=== PATIENT | male | born 1960 | race American Indian/Alaskan Native ===

== ENCOUNTER 2017-01-02 06:57 | Day surgery (SDC) | payer MEDICARE ==
[2017-01-02] MEDS ORDERED: TETRACAINE 0.5% OS PRN (07:00)
[2017-01-02] MEDS ORDERED: NACL BACTERIOSTATIC INFILTRATI ONE (09:32)
[2017-01-02] MEDS: VIGAMOX OS SCH ×3 (09:40→10:04)
[2017-01-02] MEDS: MYDRIACYL OS SCH ×3 (09:40→10:04)
[2017-01-02] MEDS: AK-Dilate OS SCH ×3 (09:40→10:04)
[2017-01-02] MEDS ORDERED: ADRENALINE P/F ONE (10:00)
--- NOTE | 2017-01-02 10:03 | Anesthesia Day of Surgery ---
Anesthesia Day of Surgery - Day of Surgery Patient Examined: Yes Patient H&P Reviewed: Yes Patient is NPO: Yes
[2017-01-02] MEDS ORDERED: SUBLIMAZE ONE (10:04)
[2017-01-02] MEDS ORDERED: VERSED ONE (10:04)
--- NOTE | 2017-01-02 10:06 | Anesthesia Consultation ---
Anesthesia Consult and Med Hx Date of service: 01/02/17 - Airway Anesthetic Teeth Evaluation: Dentures (upper/lower) ROM Head & Neck: Adequate Mental/Hyoid Distance: Adequate Mallampati Class: Class II Intubation Access Assessment: Probably Good - Pulmonary Exam CTA: Yes - Cardiac Exam Cardiac Exam: RRR - Pre-Operative Health Status ASA Pre-Surgery Classification: ASA2 Proposed Anesthetic Plan: MAC - Pulmonary Hx Smoking: Yes (quit 10 yrs ago) Hx Sleep Apnea: No (HIGH RISK) - Cardiovascular System Hx Hypertension: Yes - Central Nervous System Hx Seizures: No CVA: No Hx Psychiatric Problems: No - Gastrointestinal Hx Gastroesophageal Reflux Disease: Yes (omezprazol one a day) - Endocrine Hx Renal Disease: No Hx Liver Disease: No - Other Systems Hx Alcohol Use: No Hx Substance Use: No Hx Cancer: No (enlarged prostate) - Additional Comments Anesthesia Medical History Comments: NAC, on medication for herpes
[2017-01-02] MEDS ORDERED: NACL P/F VIAL (10 ML) 10 ML ONE (10:21)
[2017-01-02] MEDS ORDERED: ADRENALINE P/F IO ONE (10:44)
--- NOTE | 2017-01-02 10:50 | Operative Report ---
Operative Report Operative Report: PATIENT'S NAME: DATE OF : DATE OF SURGERY: 01/02/2017 PREOPERATIVE DIAGNOSIS: Cataract left eye POSTOPERATIVE DIAGNOSIS: Same OPERATIVE PROCEDURE: Phacoemulsification with intraocular lens implantation, left eye SURGEON: Amalia Adam M.D. SENIOR FINANCIAL REPORTING ANALYST SURGEON: Cindy Lens: SA 60 WF 22.5 D ANESTHESIA: Monitored anesthesia care in combination with topical and intracameral anesthesia because of the established specific risk of reflux, arrhythmias, or anxiety attacks associated with ocular manipulation, as well as the difficulty of the director of veterans affairs to manage such potentially catastrophic events while simultaneously attempting to complete the surgical procedure and was deemed necessary for the patient's safety to have an Portable Sawyer present during the procedure whenever possible. An Portable Sawyer was utilized to regulate the intravenous sedation of the patient so the patient was cooperative yet not asleep in order for the patient to successfully maintain fixation of the eye on the operating light of the microscope. COMPLICATIONS: No surgical complications No blood loss. ALLERGIES: No known drug allergies PROGNOSIS: Excellent INDICATIONS FOR SURGERY: The patient is undergoing surgery in the hopes of eliminating or improving these visual difficulties. PROCEDURE: After arriving at the surgery center, the patient was given topical anesthetic and dilating drops, as noted in the record. The patient was then taken into the operating room and given more anesthetic drops. The eyelids , lashes, and lid margins were scrubbed with Betadine solution, and the patient was draped. The Nurse Portable Sawyer administered IV sedation and monitored the patient during the procedure. The eye was then fixated with a 0.12, and a stab incision was made in the peripheral clear cornea into the anterior chamber. This was made on my left side. Viscoelastic was next used to fill the anterior chamber. The eye was once again fixated with the 0.12 forceps and a keratome was used make an incision in clear cornea peripherally on my right hand side temporally. The capsule forceps were used to open the central anterior capsule and then make a continuous round capsulotomy. Hydrodissection was carried out utilizing a cannula and balanced salt solution to delineate the cortical material from the capsule and the nucleus from the cortical material. The phaco tip was introduced into the eye and used to remove the anterior cortical material in the area of the capsulotomy. Then the phaco tip was buried into the nucleus, and a chopping instrument was introduced into the eye and used to provide countertraction in the nucleus between this instrument and the phaco tip fracturing the nucleus. This procedure was repeated multiple times, providing multiple small segments of the lens, and then the phaco tip was used to remove each of these segments. An I/A tip was then used to remove the remaining cortex. The anterior chamber was refilled with viscoelastic. An one-piece, acrylic intraocular lens was then placed into an inserting cartridge. The tip of the inserting cartridge was introduced into the keratome incision and into the anterior chamber. The implant was gently advanced through the cartridge and into the eye, where it unfolded, and both haptics were placed in the capsular bag, where it centered nicely and appeared to be well fixated. After placement of the intraocular lens, the I~and~A handpiece was placed back into the eye and used to remove the viscoelastic, including viscoelastic that was behind the optic of the intraocular lens. The anterior chamber was then filled with balanced salt solution, and hydration of the wound was used to cause swelling of the wound and more appropriate watertight closure. When the wound was found to be firm, the patient was asked to comment on how bright the light was. If there was no light perception at all or if the light was substantially dimmer than during the rest of the surgery, the amount of fluid in the eye was decompressed to lower the intraocular pressure until the patient could see the bright light again. This was done to avoid any damage or decreased blood flow to the optic nerve. MEDICATIONS APPLIED AT END OF SURGERY: One drop of Pred Forte and Vigamox The patient was given a shield to wear at night and was instructed not to rub or push on the eye. DISCHARGE SUMMARY: The patient was released in stable condition. The patient and those with the patient were given a written sheet of postoperative instructions and counseling on any abnormal laboratory studies. The patient is to see us tomorrow for follow-up in the office and is to call immediately for any difficulties. Amalia Adam M.D. Date
--- NOTE | 2017-01-02 10:51 | Short Stay Summary ---
Short Stay Documentation Date of service: 01/02/17 - History H&P: obtained from office - Allergies and Medications Current Medications: Allergies No Known Allergies Allergy (Verified 01/02/17 09:57) Home Medications Medication Instructions Recorded Confirmed Last Taken Type Ibuprofen [Motrin] 800 mg PO Q8HR PRN 12/30/16 01/02/17 12/31/16 History Lisinopril [Zestril] 5 mg PO QDAY 12/30/16 12/30/16 01/02/17 06:30 History Omeprazole Magnesium [PriLOSEC Otc] 20 mg PO QDAY 12/30/16 12/30/16 01/02/17 06: 30 History valACYclovir [Valtrex] 500 mg PO DAILY 12/30/16 01/02/17 01/01/17 History Active Medications Moxifloxacin HCl (Vigamox) 1 drops OS Q5MIN [facility] Stop: 01/04/17 07:01 Last Admin: 01/02/17 10:04 Dose: 1 drops Phenylephrine HCl (Ak-Dilate) 1 drops OS Q5MIN [facility] Stop: 01/04/17 07:01 Last Admin: 01/02/17 10:04 Dose: 1 drops Prednisolone Acetate (Pred Forte 1%) 1 drops OS QID [facility] Tetracaine HCl (Tetracaine 0.5%) 1 drops OS Q5M PRN PRN Reason: Analgesia Last Admin: 01/02/17 09:40 Dose: 1 drops Tropicamide (Mydriacyl) 1 drops OS Q5MIN [facility] Stop: 01/04/17 07:01 Last Admin: 01/02/17 10:04 Dose: 1 drops - Brief post op/procedure progress note Date of procedure: 01/02/17 Pre-op diagnosis: left cataract Post-op diagnosis: same Procedure: Phacoemulsification with intraocular lens insertion left Anesthesia: MAC Surgeon: REILLY CUEVAS Estimated blood loss: none Pathology: none Condition: stable - Disposition Condition at discharge: Good Disposition: DC-01 TO HOME OR SELFCARE - Discharge Diagnoses (1) Cataract Status: Acute Qualifiers: Cataract type: age-related Age-related cataract type: nuclear Infantile/ juvenile cataract type: I Traumatic cataract type: T Complicated cataract type: C Secondary cataract type: S Laterality: left Qualified Code(s): H25.12 - Age-related nuclear cataract, left eye Short Stay Discharge Plan Follow up with: MOE REYES MD [Primary Care Provider] - 7 Days
--- NOTE | 2017-01-02 12:10 | Post Anesthesia Evaluation ---
- Post Anesthesia Evaluation Patient Participated: Yes Airway Patent: Yes Stable Respiratory Function: Yes Nausea/Vomiting: No Temp > 96.8F: Yes Pain Manageable: Yes Adequeate Hydration: Yes Anesthesia Complications: No
[2017-01-02 12:21] VITALS: BP 161/103
[2017-01-02] MEDS ORDERED: PRED FORTE 1% OS SCH (14:00)
== END 2017-01-02 12:20 | disposition home or self-care (01) ==
LOC: OR 06:57
DX: H26.9 Unspecified cataract (principal); M19.90 Unspecified osteoarthritis, unspecified site; I10 Essential (primary) hypertension; K21.9 Gastro-esophageal reflux disease without esophagitis; Z79.899 Other long term (current) drug therapy; Z87.891 Personal history of nicotine dependence
CPT/HCPCS: 66984; J0171; J2250; J3010; V2632

== ENCOUNTER 2017-02-13 06:27 | Day surgery (SDC) | payer MEDICARE ==
[~2017-02-13 06:27] MED LIST: TETRACAINE 0.5% OD PRN
--- NOTE | 2017-02-13 08:45 | Anesthesia Consultation ---
Anesthesia Consult and Med Hx Date of service: 02/13/17 - Airway Anesthetic Teeth Evaluation: Partials ROM Head & Neck: Adequate Mental/Hyoid Distance: Adequate Mallampati Class: Class II Intubation Access Assessment: Probably Good - Pulmonary Exam CTA: Yes - Cardiac Exam Cardiac Exam: RRR - Pre-Operative Health Status ASA Pre-Surgery Classification: ASA2 Proposed Anesthetic Plan: MAC - Pulmonary Hx Smoking: Yes (quit 10 yrs ago) Hx Sleep Apnea: No (HIGH RISK) - Cardiovascular System Hx Hypertension: Yes - Central Nervous System Hx Seizures: No CVA: No Hx Psychiatric Problems: No - Gastrointestinal Hx Gastroesophageal Reflux Disease: Yes (omezprazol one a day) - Endocrine Hx Renal Disease: No Hx Liver Disease: No - Other Systems Hx Alcohol Use: No Hx Substance Use: Yes (PAST MARIJUANA NOT CURRENT) Hx Cancer: No (enlarged prostate) Hx Obesity: Yes
--- NOTE | 2017-02-13 08:45 | Anesthesia Day of Surgery ---
Anesthesia Day of Surgery - Day of Surgery Patient Examined: Yes Patient is NPO: Yes
[2017-02-13] MEDS ORDERED: TETRACAINE 0.5% OD SCH (09:07)
[2017-02-13] MEDS: MYDRIACYL OD SCH ×3 (09:15→09:25)
[2017-02-13] MEDS: VIGAMOX OD SCH ×3 (09:15→09:25)
[2017-02-13] MEDS: AK-Dilate OD SCH ×3 (09:15→09:25)
--- NOTE | 2017-02-13 09:35 | Post Anesthesia Evaluation ---
- Post Anesthesia Evaluation Patient Participated: Yes Airway Patent: Yes Stable Respiratory Function: Yes Nausea/Vomiting: No Temp > 96.8F: Yes Pain Manageable: Yes Adequeate Hydration: Yes Anesthesia Complications: No Block Receding Appropriately: Not Applicable Patient on Ventilator: No
[2017-02-13] MEDS ORDERED: SUBLIMAZE ONE (09:51)
[2017-02-13] MEDS ORDERED: VERSED ONE (09:51)
[2017-02-13 09:53] VITALS: BP 140/82
[2017-02-13] MEDS ORDERED: ADRENALINE P/F IV ONE (10:12)
--- NOTE | 2017-02-13 10:28 | Operative Report ---
Operative Report Operative Report: PATIENT'S NAME: DATE OF : DATE OF SURGERY: 02/13/2017 PREOPERATIVE DIAGNOSIS: Cataract right eye POSTOPERATIVE DIAGNOSIS: Same OPERATIVE PROCEDURE: Phacoemulsification with intraocular lens implantation, right eye SURGEON: Amalia Adam M.D. LOCKSMITH HELPER SURGEON: Cindy Lens: [id number] 23.5 D ANESTHESIA: Monitored anesthesia care in combination with topical and intracameral anesthesia because of the established specific risk of reflux, arrhythmias, or anxiety attacks associated with ocular manipulation, as well as the difficulty of the lacrosse coach to manage such potentially catastrophic events while simultaneously attempting to complete the surgical procedure and was deemed necessary for the patient's safety to have an Agronomy Specialist present during the procedure whenever possible. An Agronomy Specialist was utilized to regulate the intravenous sedation of the patient so the patient was cooperative yet not asleep in order for the patient to successfully maintain fixation of the eye on the operating light of the microscope. COMPLICATIONS: No surgical complications No blood loss. ALLERGIES: No known drug allergies PROGNOSIS: Excellent INDICATIONS FOR SURGERY: The patient is undergoing surgery in the hopes of eliminating or improving these visual difficulties. PROCEDURE: After arriving at the surgery center, the patient was given topical anesthetic and dilating drops, as noted in the record. The patient was then taken into the operating room and given more anesthetic drops. The eyelids , lashes, and lid margins were scrubbed with Betadine solution, and the patient was draped. The Nurse Agronomy Specialist administered IV sedation and monitored the patient during the procedure. The eye was then fixated with a 0.12, and a stab incision was made in the peripheral clear cornea into the anterior chamber. This was made on my left side. Viscoelastic was next used to fill the anterior chamber. The eye was once again fixated with the 0.12 forceps and a keratome was used make an incision in clear cornea peripherally on my right hand side temporally. The capsule forceps were used to open the central anterior capsule and then make a continuous round capsulotomy. Hydrodissection was carried out utilizing a cannula and balanced salt solution to delineate the cortical material from the capsule and the nucleus from the cortical material. The phaco tip was introduced into the eye and used to remove the anterior cortical material in the area of the capsulotomy. Then the phaco tip was buried into the nucleus, and a chopping instrument was introduced into the eye and used to provide countertraction in the nucleus between this instrument and the phaco tip fracturing the nucleus. This procedure was repeated multiple times, providing multiple small segments of the lens, and then the phaco tip was used to remove each of these segments. An I/A tip was then used to remove the remaining cortex. The anterior chamber was refilled with viscoelastic. An one-piece, acrylic intraocular lens was then placed into an inserting cartridge. The tip of the inserting cartridge was introduced into the keratome incision and into the anterior chamber. The implant was gently advanced through the cartridge and into the eye, where it unfolded, and both haptics were placed in the capsular bag, where it centered nicely and appeared to be well fixated. After placement of the intraocular lens, the I~and~A handpiece was placed back into the eye and used to remove the viscoelastic, including viscoelastic that was behind the optic of the intraocular lens. The anterior chamber was then filled with balanced salt solution, and hydration of the wound was used to cause swelling of the wound and more appropriate watertight closure. When the wound was found to be firm, the patient was asked to comment on how bright the light was. If there was no light perception at all or if the light was substantially dimmer than during the rest of the surgery, the amount of fluid in the eye was decompressed to lower the intraocular pressure until the patient could see the bright light again. This was done to avoid any damage or decreased blood flow to the optic nerve. MEDICATIONS APPLIED AT END OF SURGERY: One drop of Pred Forte and Vigamox The patient was given a shield to wear at night and was instructed not to rub or push on the eye. DISCHARGE SUMMARY: The patient was released in stable condition. The patient and those with the patient were given a written sheet of postoperative instructions and counseling on any abnormal laboratory studies. The patient is to see us tomorrow for follow-up in the office and is to call immediately for any difficulties. Amalia Adam M.D. Date
--- NOTE | 2017-02-13 10:29 | Short Stay Summary ---
Short Stay Documentation Date of service: 02/13/17 - History H&P: obtained from office - Allergies and Medications Current Medications: Allergies No Known Allergies Allergy (Verified 01/02/17 09:57) Home Medications Medication Instructions Recorded Confirmed Last Taken Type Ibuprofen [Motrin] 800 mg PO Q8HR PRN 12/30/16 02/10/17 02/12/17 History Lisinopril [Zestril] 5 mg PO QDAY 12/30/16 02/10/17 02/12/17 History Omeprazole Magnesium [PriLOSEC Otc] 20 mg PO QDAY 12/30/16 02/10/17 02/12/17 History valACYclovir [Valtrex] 500 mg PO DAILY 12/30/16 02/10/17 02/12/17 History prednisoLONE 1% SOD PHOSP(NF) 1 drops OS DAILY 02/10/17 02/10/17 02/12/17 History [Prednisol (Nf)] Active Medications Moxifloxacin HCl (Vigamox) 1 drops OD Q5MIN [facility] Stop: 02/15/17 06:01 Last Admin: 02/13/17 09:25 Dose: 1 drops Phenylephrine HCl (Ak-Dilate) 1 drops OD Q5MIN [facility] Stop: 02/15/17 06:01 Last Admin: 02/13/17 09:25 Dose: 1 drops Prednisolone Acetate (Pred Forte 1%) 1 drops OD QID [place] Tetracaine HCl (Tetracaine 0.5%) 1 drops OD Q5M [facility] Stop: 02/13/17 23:59 Last Admin: 02/13/17 09:15 Dose: 1 drops Tropicamide (Mydriacyl) 1 drops OD Q5MIN [place] Stop: 02/15/17 06:01 Last Admin: 02/13/17 09:25 Dose: 1 drops - Brief post op/procedure progress note Date of procedure: 02/13/17 Pre-op diagnosis: cataract right eye Post-op diagnosis: same Procedure: Phacoemulsification with intraocular lens insertion right eye Anesthesia: MAC Surgeon: REILLY CUEVAS Estimated blood loss: none Pathology: none Condition: stable - Disposition Condition at discharge: Good Disposition: DC-01 TO HOME OR SELFCARE - Discharge Diagnoses (1) Cataract Status: Resolved Qualifiers: Cataract type: age-related Age-related cataract type: nuclear Infantile/ juvenile cataract type: I Traumatic cataract type: T Complicated cataract type: C Secondary cataract type: S Laterality: right Qualified Code(s): H25.11 - Age-related nuclear cataract, right eye Short Stay Discharge Plan Follow up with: MOE REYES MD [Primary Care Provider] - 7 Days
[2017-02-13] MEDS ORDERED: PRED FORTE 1% OD SCH (11:00)
== END 2017-02-13 12:00 | disposition home or self-care (01) ==
LOC: OR 06:27
DX: H26.9 Unspecified cataract (principal); M19.90 Unspecified osteoarthritis, unspecified site; K21.9 Gastro-esophageal reflux disease without esophagitis; I10 Essential (primary) hypertension; F12.21 Cannabis dependence, in remission; E66.9 Obesity, unspecified; Z68.32 Body mass index [BMI] 32.0-32.9, adult; Z79.899 Other long term (current) drug therapy; Z87.891 Personal history of nicotine dependence
CPT/HCPCS: 66984; J0171; J2250; J3010; V2632